=== PATIENT | male | born 1965 | race Caucasian/White ===

== ENCOUNTER 2023-06-16 17:54 | Inpatient (IN) | payer MEDICARE, SELFPAY ==
[2023-06-16 14:14] VITALS: BP 118/85
--- NOTE | 2023-06-16 15:41 | ED.GENMED ---
History of Present Illness
General
Chief Complaint: Musculo-Skeletal Complaint
Source: patient
Time Seen by Provider: 06/16/23 15:05
Travel History
Have you had any contact with someone who has COVID-19?: No
Do you have any symptoms of coronavirus? Fever > 100 degrees, chills, cough, shortness of breath, sore throat, loss of taste or smell, muscle aches, or headache?: No
History of Present Illness
History of Present Illness:
57-year-old male presents to the emergency room complaining of pain and swelling in his right great toe. Patient has been experiencing the pain to at least a mild extent for the past couple weeks. He has noted the toe to be quite sensitive when
his dog bumps into it. He noted the swelling began extending into his ankle and lower extremity prompting him to come to the emergency room today. He denies any fever. Patient is diabetic and takes Glucophage for his diabetes. He does have
decreased sensation in the feet.
Phy Exam
Physical Exam
Physical Exam:
General: Awake, Alert, Oriented X3. No acute distress.
Vitals: unremarkable
Head: Atraumatic
Eyes: Pupils equal, EOMI
Throat: Airway intact, no exudates
Neck: Trachea midline
Lungs: Clear and equal b/l
Heart: Regular rate, no murmurs
Abd: Soft, Nontender, No pulsatile mass
Neuro: Nonfocal
Skin: Warm, dry, no rash
Extremities: pulses equal b/l. Right lower extremity is swollen and there is erythema extending from the great toe up to the lower third of the lower leg. The great toe itself is markedly swollen and erythematous with sloughing of skin and
serosanguineous to purulent discharge. The patient's nail has sloughed. There is no tenderness to palpation.
Course
Orders/Labs/Results
Orders:
Orders
06/16/23 Lunch
2000 calorie (17 carb) Diabetic
06/16/23 14:22
Toes 2 Views, Right [CR Toe(s) Min 2 Vw Right] Urgent
Comment:
Reason For Exam: redness
Indicate Which Toe:: Great
06/16/23 15:30
Piperacillin/Tazo 4.5 Gram [Zosyn] 4.5 gram in 100 ml IV NOW
06/16/23 16:01
Basic Metabolic Panel Urgent
Complete Blood Count/With Diff Urgent
Lactic Acid Q4H
Comment: CANCEL 2nd LACTIC ACID IF 1st LACTIC ACID IS LESS THAN 2
Blood Culture Q30M
GALLITO Source: Blood/Venous
Specimen Description:
Blood Culture Q30M
GALLITO Source: Blood/Venous
Specimen Description:
06/16/23 16:07
Vancomycin [Vancocin] 2,000 mg 0.9% Sodium Chloride 500 ml [Nss] 500 ml IV NOW
06/16/23 17:23
Admit/Transfer Patient As Directed
Co-Sign Provider:
Level of Care: Inpatient admission
Assign to:: Medical/Surgical
Physician / Group: jaquez/hospitalist
Diagnosis: Right great toe cellulitis
Reason for Hospitalization: Right great toe cellulitis, concern for OM
Expected length of stay greater than two midnights?: Yes
ELOS- Estimated Length of Stay in days: 4
I certify the patient meets the requirements for IP care: Yes
06/16/23 17:24
Code Status As Directed
Resuscitation Status: Full Code
06/16/23 19:40
Acetaminophen [Tylenol] 650 mg PO Q4HPRN PRN
06/16/23 20:08
0.9% Sodium Chloride 1000 ml [Nss] 1,000 ml IV 100 mls/hr
Atorvastatin [Lipitor] 10 mg PO QPM
Cyclobenzaprine HCl [Flexeril] 10 mg PO TIDPRN PRN
Dextrose 50%-Water [Dextrose 50% Syringe] 12.5 grams IV [id number] PRN
Enoxaparin Sodium [Lovenox] 40 mg SC QPM
Glucagon [GlucaGen] 1 mg IM PRN PRN
Oxycodone [Roxicodone] 15 mg PO QID
Sennosides [Senokot] 8.6 mg PO BID
VANCOMYCIN Pharmacy to Dose [VANCOCIN Pharmacy to Dose] 1 each Pharmacy To Prepare [Call Pharmacy To Prepare] 0 ml IV PER PROTOCOL
06/16/23 20:08
INFECTIOUS DISEASE CONSULT Routine
Consulting Provider: Yelitza Harrington
Was physician already notified: Yes
Reason for consult: R leg cellulitis/R great toe?om
PODIATRY CONSULT Routine
Consulting Provider: Whitley Smith
Was physician already notified: Yes
Low Ext Joint, Right With MR [MR Right Le Joint With] Routine
Comment:
Reason For Exam: Concern R GREAT toe osteo. abscess.
Recent pill cam endoscopy?: No
Activity As Directed
Activity Level: Out of Bed-Early Mobility
Bedside Glucose Monitoring As Directed
Frequency: AC&HS
Comment: Change to q6h if pt on TPN, tube feeding or not eating
Vital Signs As Directed
Frequency: Per unit guidelines
DX Deep Vein Thrombosis Video Routine
06/17/23 00:00
Piperacillin/Tazo 3.375 Gram [Zosyn] 3.375 gram in 50 ml IV Q6
06/17/23 06:00
Basic Metabolic Panel IN AM
Complete Blood Count/With Diff IN AM
Glycohemoglobin (HgbA1c) IN AM
06/17/23 07:30
Insulin Aspart Corrective Low [Novolog Flexpen-Low Resistance] See Protocol SC AC
06/17/23 08:00
Aspirin Low Dose EC [Aspir Low (Enteric Coated)] 81 mg PO DAILY
vitamin A-vitamin C-vit E-min 1 tablet PO DAILY
06/17/23 12:00
Ascorbic Acid [Vitamin C] 500 mg PO NOON
Cholecalciferol (Vitamin D3) [VITAMIN D3 (cholecalciferol)] 25 mcg PO NOON
Multivitamin [Theragran] 1 tablet PO NOON
Abnormal Lab Results
06/16/23
16:01
RBC 3.70 L 10^6/uL
(4.70-6.10)
Hgb 11.7 L g/dL
(13.0-18.0)
Hct 33.7 L %
(39.0-52.0)
MCH 31.6 H pg
(27.0-31.0)
Sodium 133 L mmol/L
(135-145)
BUN 25 H mg/dl
(9-20)
Creatinine 1.4 H mg/dL
(0.7-1.3)
Glucose 163 H mg/dl
(70-99)
06/16/23 16:01
06/16/23 16:01
Vital Signs
Initial and Last Documented VS:
Initial Vital Signs
Temp Pulse Resp BP Pulse Ox
98.8 F 98 18 118/85 98
06/16/23 14:14 06/16/23 14:14 06/16/23 14:14 06/16/23 14:14 06/16/23 14:14
Last Documented Vital Signs
Temp Pulse Resp BP Pulse Ox
99.5 F 134 18 118/66 97
06/16/23 20:08 06/16/23 20:08 06/16/23 20:08 06/16/23 20:08 06/16/23 20:08
MDM/Problems Addressed
Differential Diagnosis Includes:
Cellulitis, osteomyelitis, abscess
MDM/Problems Addressed:
Patient has significant abnormalities on exam of his great toe and foot. X-rays show changes concerning for osteomyelitis. There is also what appears to be a fracture of the distal phalanx of the great toe. Broad-spectrum antibiotics initiated.
Patient will require hospitalization for IV antibiotics and possible debridement or even amputation.
Chronic conditions affecting care: DM
*Radiology
Radiology exam reviewed: preliminary read by ED provider (Pressure reviewed the patient's foot x-ray and no what appears to be osteomyelitis of the distal phalanx. There are also appears to be a fracture line)
*Pulse Oximetry
Patient hypoxic: no
*Critical Care Note
Total Time (30-74mins, 75-104mins- exclusive of procedures): Not Applicable
ED Attending Note
-
Portions of this chart may have been created with voice recognition software.� Occasional wrong word or��sound alike� substitutions may have occurred due to the inherent limitations of voice recognition software.
Discharge Plan
Departure
Patient Disposition: Admit
Date of Disposition: 06/16/23
Time of Disposition: 16:32
Presentation/result/management discussed w/ accepting MD/DO: Hospitalist
Condition: Serious
Discharge Problem:
Diabetic foot infection
Interventions
Interventions:
*Risk Screen - Suicide Last Done: 06/16/23 15:43
*General Assessment Last Done: 06/16/23 15:43
*Neglect/Abuse Screening Last Done: 06/16/23 15:43
ED- Fall Risk Assessment Last Done: 06/16/23 17:00
*ED COVID-19 Vaccine History Last Done: 06/16/23 15:43
*Nursing Disposition Last Done: 06/16/23 20:23
ED-Musculoskeletal Assessment Last Done: 06/16/23 15:44
Discharge Date and Time
Discharge Date/Time: 06/16/23 20:24
[2023-06-16 15:42] VITALS: BMI 39.0
[2023-06-16] MEDS: ZOSYN 100 IV (15:56)
[2023-06-16 16:14] LABS: % Basophils 0.1 % (0-2); % Eosinophils 0.7 % (0-6); % Immature Granulocytes 0.3 % (0-0.5); % Lymphocytes 23.8 % (20.5-51.1); % Monocytes 9.1 % (1.7-9.3); Absolute Eosinophils 0.1 10^3/uL (0-0.7); Absolute Lymphocytes 1.7 10^3/uL (1.2-3.4); Absolute Monocytes 0.6 10^3/uL (0.1-0.6); Absolute Neutrophils 4.6 10^3/uL (1.4-6.5); Hematocrit 33.7 % (39.0-52.0); Hemoglobin 11.7 g/dL (13.0-18.0); Mean Corp Hgb Conc. 34.7 g/dL (33.0-37.0); Mean Corpuscular Hgb 31.6 pg (27.0-31.0); Mean Corpuscular Volume 91.1 fL (80.0-94.0); Mean Platelet Volume 9.3 fL (7.4-10.4); Nucleated Red Blood Cells % 0 % (-); Platelet Count 207 10^3/uL (130-400); Red Cell Dist. Width 12.8 % (11.5-14.5)
[2023-06-16 16:24] LABS: Blood Urea Nitrogen 25 mg/dl (9-20); Calcium 8.8 mg/dl (8.4-10.2); Carbon Dioxide 27 mmol/L (22-30); Chloride 98 mmol/L (98-107); Estimated Creatinine Clearance 99 ml/min; Glucose 163 mg/dl (70-99); Lactic Acid 1.8 mmol/L (0.7-2.0); Sodium 133 mmol/L (135-145); eGFR 58.26
[2023-06-16 16:30] VITALS: BP 121/75
[2023-06-16] MEDS: VANCOCIN 540 MG IV (16:48)
--- NOTE | 2023-06-16 17:14 | HPS.HSE ---
Family Physician
-
Family Physician: Douglas Peralta
Chief Complaint
-
R TOE SWELLING
History of Present Illness
57-year-old male past medical history as above who is presenting with right great toe swelling and right leg erythema. Patient states he stubbed his right great toe multiple times. There was loosening of right great toe nail. Also states that his
toe was quite sensitive due to pain and his son's dog bumped into it. Woke up this morning with severe right foot swelling and also noted of right leg erythema. Denies any numbing or tingling or pain in right leg and great toe. Denies any fevers
or chills. Denies any nausea vomiting or diarrhea or abdominal pain or chest pain. States he was worried about severe swelling of his right foot and great toe and thus decided come to the ER. Has history of right foot second toe partial
amputation last year.
Medical History
Past Medical History
Past Medical History: Reports HTN, Hypercholesterolemia and NIDDM
Past Surgical History: Reports Orthopedic (R 2nd toe amputation )
Social History
Tobacco: Smoker (cigar occasionally)
Alcohol: None
Drug: None
Family History
Family History: Not pertinent
Allergies / Home Medications
Allergies reflects when Allergies were last updated in [facility].
Home Medications with original date entered in [facility]
Allergy/Medication List:
Allergies
Allergy/AdvReac Type Severity Reaction Status Date / Time
No Known Allergies Allergy Unverified 06/16/23 14:20
Home Medications
ascorbic acid (vitamin C) 500 mg tablet (Vitamin C) 500 mg PO NOON 06/16/23
aspirin 81 mg tablet,delayed release 81 mg PO DAILY 06/16/23
atorvastatin 10 mg tablet (Lipitor) 10 mg PO QPM 06/16/23
cholecalciferol (vitamin D3) 25 mcg (1,000 unit) tablet (Vitamin D3) 25 mcg PO NOON 06/16/23
cyclobenzaprine 10 mg tablet 10 mg PO TID PRN spasms 06/16/23
losartan 100 mg-hydrochlorothiazide 25 mg tablet 1 tab PO DAILY 06/16/23
metformin 1,000 mg tablet 1,000 mg PO BID 06/16/23
oxycodone 15 mg tablet 15 mg PO QID 06/16/23
therapeutic multivitamin 1 tab PO NOON 06/16/23
vitamin A-vitamin C-vit E-min tablet 1 tab PO DAILY 06/16/23
Review of Systems
-
History Source: Patient
A 12 point ROS was completed and negative except as noted: Yes
Physical Exam
Vital Signs
Vital Signs
Temp Pulse Resp BP Pulse Ox
98.8 F 98 18 118/85 98
06/16/23 14:14 06/16/23 14:14 06/16/23 14:14 06/16/23 14:14 06/16/23 14:14
Physical Exam
General: Well Developed, Well Nourished and No Apparent Distress
HEENT: NormoCephalic, Moist mucous membranes and Atraumatic
Respiratory: Clear
Cardiac: S1/S2, Regular Rhythm and Other (+RLE DP pulses); No Murmur or Rub
GI: Soft, Non Tender, Non Distended and Normal Bowel Sounds; No Organomegaly
Rectal: Deferred by Provider
Musculoskeletal: No Clubbing, No Cyanosis and Other (R foot swelling including great toe. R leg erythematous rash )
Skin: No Rash
Neuro: Awake, Alert, Oriented, AO x 3 and Nonfocal/grossly intact
Laboratory Results
-
06/16/23 16:01
06/16/23 16:01
Laboratory Results
Lactic Acid 1.8 mmol/L (0.7-2.0) 06/16/23 16:01
Impression/Plan
-
#Right leg cellulitis
#Right great toe cellulitis with concern for osteomyelitis
X-ray pending
Check MRI of the lower extremity
Continue with broad-spectrum antibiotics of Vanco and Zosyn for now
Infectious disease and further evaluation
Pain control
#Primary hypertension
Hold meds and restart based on Cr in am
# Elevated creatinine likely CKD
Unclear baseline
Outpatient records
Hold HCTZ for now
Gentle IVF
#Hyperlipidemia
continue statin
#Diabetes mellitus
Hold metformin
iss
Accu-Cheks and check A1c
#Chronic opioid dependent daily basis
Continue oxycodone
PDMP checked and verified
Bowel regimen added
DVT ppx-lovenox
I spent a total of 78 minutes with the patient or on the floor. More than 50% of this time involved counseling and coordination of care.
[2023-06-16 19:39] VITALS: BP 125/71
[2023-06-16] MEDS: TYLENOL 650 MG PO (19:45)
[2023-06-16 20:08] VITALS: BP 118/66
--- NOTE | 2023-06-16 20:16 | PHA.VAN.IN ---
Assessment
- Assessment
Renal Function: Unknown baseline
Concomitant Antimicrobials: piperacillin/tazobactam
Plan
- Plan
Initial / Loading Dose: 2000mg - 06/15 16:48
Maintenance Regimen: dosing by level
Monitoring: random 06/16 0600
MRSA Screen: Ordered per protocol
Patient may be slow to accumulate with BMI
CrCl likely overestimated due to height / weight
Pharmacokinetics Vancomycin I
- -
Patient Age: 57
Patient Sex: Male
Vancomycin Day #: 1
Indication: Skin And Soft Tissue
Requesting Provider: Dr. Ayala
Pertinent Antimicrobial Allergies:
NKDA
Height / Weight:
Height 6 ft 8 in
Actual Weight 161.1 kg
Pertinent Past Medical History: BMI ~39, DM
- Vital Signs / Lab Results
Temp Pulse Resp BP Pulse Ox
99.5 F 134 18 118/66 97
06/16/23 20:08 06/16/23 20:08 06/16/23 20:08 06/16/23 20:08 06/16/23 20:08
Lab Results - Hematology
06/16/23
16:01
WBC 7.0
Lab Results - Chemistry
06/16/23
16:01
BUN 25 H
Creatinine 1.4 H
Estimated Creat Clear 99
06/16/23 06/16/23
16:01 19:45
Lactic Acid 1.8 Cancelled
[2023-06-16] MEDS: LOVENOX 40 MG SC (20:24)
[2023-06-16] MEDS: NSS 1000 IV (20:24)
[2023-06-16] MEDS: ROXICODONE 15 MG PO (20:25)
[2023-06-16] MEDS: LIPITOR 10 MG PO (20:25)
[2023-06-16 21:38] LABS: Glucose - Point of Care 186 mg/dl (70-99)
[2023-06-16 23:54] VITALS: BP 106/72
[2023-06-17] MEDS: ROXICODONE 15 MG PO ×5 (00:11→21:28)
[2023-06-17] MEDS: ZOSYN 50 IV ×3 (00:11→11:21)
[2023-06-17 05:49] LABS: % Basophils 0.1 % (0-2); % Eosinophils 1.4 % (0-6); % Immature Granulocytes 0.4 % (0-0.5); % Lymphocytes 22.5 % (20.5-51.1); % Monocytes 9.7 % (1.7-9.3); % Neutrophils 65.9 % (42.2-75.2); Absolute Eosinophils 0.1 10^3/uL (0-0.7); Absolute Lymphocytes 1.6 10^3/uL (1.2-3.4); Absolute Monocytes 0.7 10^3/uL (0.1-0.6); Absolute Neutrophils 4.8 10^3/uL (1.4-6.5); Hematocrit 30.9 % (39.0-52.0); Hemoglobin 10.9 g/dL (13.0-18.0); Mean Corp Hgb Conc. 35.3 g/dL (33.0-37.0); Mean Corpuscular Hgb 32.2 pg (27.0-31.0); Mean Corpuscular Volume 91.4 fL (80.0-94.0); Mean Platelet Volume 9.4 fL (7.4-10.4); Nucleated Red Blood Cells % 0 % (-); Platelet Count 177 10^3/uL (130-400); Red Blood Cell Count 3.38 10^6/uL (4.70-6.10); Red Cell Dist. Width 12.8 % (11.5-14.5); White Blood Cell Count 7.2 10^3/uL (4.8-10.8)
[2023-06-17 06:12] LABS: Blood Urea Nitrogen 21 mg/dl (9-20); Calcium 8.3 mg/dl (8.4-10.2); Carbon Dioxide 29 mmol/L (22-30); Chloride 100 mmol/L (98-107); Estimated Creatinine Clearance 99 ml/min; Glucose 139 mg/dl (70-99); Potassium 3.9 mmol/L (3.5-5.1); Sodium 135 mmol/L (135-145); eGFR 58.26
[2023-06-17 07:00] VITALS: BP 136/72
[2023-06-17] MEDS: ASPIR LOW (ENTERIC COATED) 81 MG PO (07:27)
[2023-06-17 07:42] LABS: Glucose - Point of Care 156 mg/dl (70-99)
[2023-06-17] MEDS: NOVOLOG FLEXPEN-LOW RESISTANCE 1 UNITS SC ×3 (08:36→16:40)
--- NOTE | 2023-06-17 09:31 | W.PN.HOSP.TC ---
Addendum entered and electronically signed by Arden Durham MD 06/17/23 09:39:
Correction will continue to be on vancomycin as MRSA screen still not resulted
Original Note:
Today's Communication/Plan
-
Continue Zosyn
Discontinue vancomycin
Await MRI results
Podiatry input
Has good peripheral vascular pulses and had recent RIMA that was normal
Assessment / Plan
Assessment / Plan
57-year-old male past medical history as above who is presenting with right great toe swelling and right leg erythema.� Patient states he stubbed his right great toe multiple times.� There was loosening of right great toe nail.� Also states that his
toe was quite sensitive due to pain and his son's dog bumped into it.� Woke up this morning with severe right foot swelling and also noted of right leg erythema.� Denies any numbing or tingling or pain in right leg and great toe.� Denies any fevers
or chills.� Denies any nausea vomiting or diarrhea or abdominal pain or chest pain.� States he was worried about severe swelling of his right foot and great toe and thus decided come to the ER.� Has history of right foot second toe partial
amputation last year.
X-ray of the right great toe 3 views:
There is a comminuted fracture involving the distal aspect of the distal phalanx of the right great toe.
There are also is a fracture line extending through the lateral proximal articular margin of the distal phalanx of the right great toe.
Within the fracture fragments of the distal aspect of the distal phalanx, there is suggestion of some bony substance loss, and findings raise concern for osteomyelitis
Continued radiographic follow-up may be helpful to assess for any progression of bony destruction.
There has been interval resection of the right second toe at the level of the mid portion of the middle phalanx.
Mild to moderate degenerative change of the first metatarsophalangeal joint.
Musculoskeletal: No Clubbing, No Cyanosis and Other (R foot swelling including great toe. R leg erythematous rash )
Skin: No Rash
Neuro: Awake, Alert, Oriented, AO x 3 and Nonfocal/grossly intact
#Right leg cellulitis
#Right great toe cellulitis with concern for osteomyelitis
X-ray highly suspicious for osteomyelitis at the tip/with comminuted fracture of distal phalanx right great toe
Check MRI of the lower extremity
-Good peripheral vascular pulses at posterior tibialis and anterior tib/recent RIMA was normal
Continue with broad-spectrum antibiotics of Zosyn for now/discontinue vancomycin with MRSA negative screen
Infectious disease and further evaluation
Pain control
#Primary hypertension
Hold meds and restart based on Cr in am
# Elevated creatinine likely CKD
Unclear baseline
Outpatient records
Hold HCTZ for now
Gentle IVF
#Hyperlipidemia
continue statin
#Diabetes mellitus
Hold metformin
iss
Accu-Cheks and check A1c
#Chronic opioid dependent daily basis
Continue oxycodone
PDMP checked and verified
Bowel regimen added
DVT ppx-lovenox
Anticipated Discharge: 24 - 48 hours
Subjective/Interval History
-
Date of Service: June 17, 2023
Patient in no acute distress
Objective Data
-
Labs:
Laboratory Results
06/17/23
05:03
WBC 7.2
Hgb 10.9 L
Hct 30.9 L
Plt Count 177
Sodium 135
Potassium 3.9
Chloride 100
Carbon Dioxide 29
BUN 21 H
Creatinine 1.4 H
Glucose 139 H
Calcium 8.3 L
Vital Signs:
Vital Signs
Temp Pulse Resp BP Pulse Ox
98.6 F 75 17 136/72 95
06/17/23 07:00 06/17/23 07:00 06/17/23 07:00 06/17/23 07:00 06/17/23 07:00
Review of Systems
-
History Source: Patient
All other systems: Not reviewed unless documented
Skin: Reports Sores (Right great toe with oozing bleeding dressed) and Nail Changes
Physical Exam
-
General: Well Developed
HEENT: Normocephalic
Respiratory: Clear to Auscultation
Cardiac: Regular Rhythm
GI: Soft and Nontender
Musculoskeletal: Edema, Right Lower Extrem (Swollen without breakthrough drainage right great toe dressed/good peripheral pulses at dorsalis pedis and posterior tibialis)
Skin: Warm and Ulcers
Psych: Calm
Data Reviewed
-
Total Time Spent with Patient (in minutes): 56
Labs: Labs Reviewed by me
[2023-06-17 10:32] LABS: Vancomycin Random 7.9 ug/ml
--- NOTE | 2023-06-17 11:15 | PHA.VAN.FU ---
Vancomycin Assessment / Plan
- Assessment
Renal Function: Stable
WBC's are: WNL
In the past 24 hrs, patient has been: Febrile
Concomitant Antimicrobials: Piperacillin/Tazobactam
- Assessment - Therapeutic Drug Monitoring
Random Level: 7.9
- Dosing Plan
Dosing by Level: Re-dose today (1000mg)
- Monitoring Plan
Random Level: 06/17 @0600
- Follow Up
Pharmacy will continue to follow.
Vancomycin Follow UP
- -
Patient Age: 57
Patient Sex: Male
Vancomycin Day #: 2
Indication: Skin And Soft Tissue
Requesting Provider: Dr. Ayala
Pertinent Antimicrobial Allergies:
NKDA
Height / Weight:
Height 6 ft 8 in
Actual Weight 161.1 kg
Pertinent Past Medical History: BMI ~39, DM
- Vital Signs / Lab Results
Temp Pulse Resp BP Pulse Ox
98.6 F 75 17 136/72 95
06/17/23 07:00 06/17/23 07:00 06/17/23 07:00 06/17/23 07:00 06/17/23 07:00
Lab Results - Hematology
06/16/23 06/17/23
16:01 05:03
WBC 7.0 7.2
Lab Results - Chemistry
06/16/23 06/17/23
16:01 05:03
BUN 25 H 21 H
Creatinine 1.4 H 1.4 H
Estimated Creat Clear 99 99
06/16/23 06/16/23
16:01 19:45
Lactic Acid 1.8 Cancelled
Therapeutic Drug Monitoring
Random Vancomycin 7.9 ug/ml 06/17/23 10:05
[2023-06-17] MEDS: THERAGRAN 1 TABLET PO (11:21)
[2023-06-17] MEDS: VITAMIN D3 (cholecalciferol) 25 MCG PO (11:21)
[2023-06-17 11:43] LABS: Glucose - Point of Care 190 mg/dl (70-99)
[2023-06-17] MEDS: VITAMIN C 500 MG PO (12:14)
--- NOTE | 2023-06-17 12:56 | CON.ID ---
Consultation
-
Date/Time Consultation Requested: 06/16/23 20:08
Date/Time Consultation Performed: 06/17/23 12:56
Requesting Provider: Dr Ayala
Performing Provider: Dr Carlson
Reason for Consultation: R leg cellulitis/R great toe?om
Chief Complaint / Past History
Chief Complaint
right toe swelling
History of Present Illness
Mr Zan Prasad is a 57 year old male with history of DM2, R 2nd toe amputation, class II obesity who presented here last night for right great toe swelling and right leg erythema. Reports stubbing the toe multiple times recently - toe nail was loose,
then woke up with severe ight foot swelling and right leg erythema. No numbness or tingling. No fevers, chills, nausea, vomiting, diarrhea, abdominal pain or chest pain.
Since arrival here Tmax 100.9, BP stable, wbc 7.2, hgb 10.9, plt 177, a left shift is noted, cr 1.4, a1c 8.0, lactic acid 1.8, lfts were not assessed, 06/15 toe xray: fracture, bony loss concerning for possible osteomyelitis, blood cultures x2 are in
progress and a mrsa screen is in progress. Podiatry is consulted. Patient is currently on vancomycin and zosyn. ID is consulted for assistance with management.
Past History
Additional Past Medical History:
HTN, Hypercholesterolemia and NIDDM
Additional Past Surgical History:
R 2nd toe amputation
Allergy History:
No Known Allergies Allergy (Unverified 06/16/23 14:20)
Medications Reviewed: Yes
Social History
Tobacco: Smoker
Alcohol: None
Drug: None
Family History
Family History: Not Pertinent
Review of Systems
Review of Systems
General: Negative Fever or Chills
All systems: All other systems were reviewed and were negative
Vital Signs
Temp Pulse Resp BP Pulse Ox
98.6 F 75 17 136/72 95
06/17/23 07:00 06/17/23 07:00 06/17/23 07:00 06/17/23 07:00 06/17/23 07:00
Physical Exam
Physical Exam
Constitutional: No Acute Distress
Cardiovascular: Regular Rate and S1/S2; Negative Murmur or Rub
Pulmonary: Clear and Symmetric; Negative Wheezes, Rales or Rhonchi
Gastrointestinal: Soft, Non Tender, Non Distended and Normal Bowel Sounds
Extremities: Other (right great toe probes to bone - marekdly swollen, no feeling in the great toe; 2nd digit note partial amputation - fully healed)
Skin: Warm and Dry; Negative Rash or Jaundice
Lab / Diagnostic Study Results
06/17/23 05:03
06/17/23 05:03
Abs Immat Gran (auto) 0.0 10^3/uL (0-0.05) 06/17/23 05:03
Absolute Neuts (auto) 4.8 10^3/uL (1.4-6.5) 06/17/23 05:03
Absolute Lymphs (auto) 1.6 10^3/uL (1.2-3.4) 06/17/23 05:03
Absolute Monos (auto) 0.7 10^3/uL (0.1-0.6) H 06/17/23 05:03
Absolute Basos (auto) 0.0 10^3/uL (0-0.2) 06/17/23 05:03
Immature Gran % 0.4 % (0-0.5) 06/17/23 05:03
Neutrophils % 65.9 % (42.2-75.2) 06/17/23 05:03
Lymphocytes % 22.5 % (20.5-51.1) 06/17/23 05:03
Monocytes % 9.7 % (1.7-9.3) H 06/17/23 05:03
Eosinophils % 1.4 % (0-6) 03/04/24 05:03
Basophils % 0.1 % (0-2) 06/17/23 05:03
Lactic Acid Cancelled 06/16/23 19:45
Microbiology Results
Micro:
06/16/23 22:31 MRSA Screen - Pending
Nose
06/16/23 16:01 Blood Culture - Pending
Blood/Venous
06/16/23 16:01 Blood Culture - Pending
Blood/Venous
Assessment / Plan
Diabetic Foot Infection
Probable Osteomyelitis of the Right Great Toe
H/o partial amputation of the R second toe
DM2 uncontrolled
Class II obesity
- blood cultures x2 in progress
- mrsa screen in progress
- compression/elevation of the foot/leg as tolerated
- continue vancomycin pending mrsa screen
- start unasyn stop zosyn
- penitentiary control of DM2 recommended to decrease risk of relapse, reinfection, progression etc - reviewed with patient
- recommend abstinence from tobacco - reviewed with patient
- podiatry is consulted
- follow clinically
[2023-06-17] MEDS: VANCOCIN 200 IV (13:03)
[2023-06-17 15:00] VITALS: BP 132/66
[2023-06-17 16:39] LABS: Glucose - Point of Care 153 mg/dl (70-99)
--- NOTE | 2023-06-17 17:19 | CM ---
Alert awake oriented patient who lives with his son Rik who lives in a 2 story home with 10 step to enter and 12 steps to bed and bathroom. He is independent in driving and in all activities of daily living.He was offered VN he requested [facility]
VN. Saida notified .
No VN hx / No SNF history
Pharmacy [address]
PCP DR Peralta
PLAN Home [facility] VN if accepted
--- NOTE | 2023-06-17 17:28 | CON.MD ---
Consultation - Medical
-
CONSULTATION :Dr Sofia Durham received 06/17/2023 at 945
Cons[address] provided by Dr Veronica Cote 06/17/2023 @ 1700
Medical History
Chief Complaint
Right great toe swelling
History of Present Illness
This is a 57 year old male with history of DM2, R 2nd toe amputation, obesity who presented here last night for right great toe and right leg swelling and erythema.� Reports stubbing the toe multiple times recently - toe nail was loose, then woke up
with severe right foot swelling and right leg erythema.� No numbness or tingling.� No fevers, chills, nausea, vomiting, diarrhea, abdominal pain or chest pain.�
�
06/15 toe xray: Fracture, bony loss concerning for possible osteomyelitis, blood cultures x2 are in progress and a mrsa screen is in progress.� Patient is currently on vancomycin and zosyn per ID
Review of Systems
Review of Systems
General: Negative Fever or Chills
All systems: All other systems were reviewed and were negative
Vital Signs
Physical Exam
Physical Exam
Constitutional: No Acute Distress
Cardiovascular: Regular Rate and S1/S2; Negative Murmur or Rub
Pulmonary: Clear and Symmetric; Negative Wheezes, Rales or Rhonchi
Gastrointestinal: Soft, Non Tender, Non Distended and Normal Bowel Sounds
Extremities: Other (right great toe probes to bone - marekdly swollen, no feeling in the great toe; 2nd digit note partial amputation - fully healed)
Skin: Warm and Dry; Negative Rash or Jaundice
Lab / Diagnostic Study Results
Past Medical / Surgical History
HTN, Hypercholesterolemia and NIDDM
Additional Past Surgical History:
PSH: S/P Partial R 2nd toe amputation
Medications
Medications Reviewed on chart
Allergies
NKDA
Social / Family History
Social History
Tobacco: Smoker
Alcohol: denies
Drug: denies
Family History
Family History: Not Pertinent
Vital Signs / Labs
-
Vital Signs and Labs:
Temp Pulse Resp BP Pulse Ox
98.6 F 80 18 132/66 96
06/17/23 15:00 06/17/23 15:00 06/17/23 15:00 06/17/23 15:00 06/17/23 15:00
06/17/23 05:03
06/17/23 05:03
06/16/23 06/17/23 06/17/23
21:36 05:03 07:40
RBC 3.38 L
Hgb 10.9 L
Hct 30.9 L
MCH 32.2 H
Absolute Monos (auto) 0.7 H
Monocytes % 9.7 H
BUN 21 H
Creatinine 1.4 H
Glucose 139 H
Hemoglobin A1c 8.0 H
Calcium 8.3 L
POC Glucose 186 H 156 H
06/17/23 06/17/23
11:41 16:35
RBC
Hgb
Hct
MCH
Absolute Monos (auto)
Monocytes %
BUN
Creatinine
Glucose
Hemoglobin A1c
Calcium
POC Glucose 190 H 153 H
Physical Exam
Vital Signs
Vital Signs
Temp Pulse Resp BP Pulse Ox
98.6 F 80 18 132/66 96
06/17/23 15:00 06/17/23 15:00 06/17/23 15:00 06/17/23 15:00 06/17/23 15:00
Physical Exam
General: pleasant AAOx3 in NAD
LE focused exam:
Vascular:+2/4 DPA and PLUGGER B/L, good cft to toes. ++LE edema
Derm: ++Cellulitis Right foot and leg.wound to the distal great toe probes to bone, unable to express purulent drainage tonight, feet are dry. LEft foot scaly with thick keratosis, +heel fissures B/L heels
Ortho: Drop foot/Peroneal weakness LLE
Neuro: Diminished protetive sensation
Assessemnt/Plan
-
DM2 with DPN/LOPS
LLE foot drop/gait dysfunction
Xerosis and chronic tinea pedis LLE>Rt
Osteomyelitis Right great toe w/pathologic fracture--MRI pending, xray included entire distal phalynx, however clinically may have abscess and poss early osteo of the prox phalynx
Cellulitis RLE-iv abt per ID
-->Patient will require amp of the great toe -pending MRI will determine if total amp Vs Partial. May need open amp followed by delayed closure. Will make NPO, however, the liklihood of getting in the OR early is unlikely and may need to add to Wed
schedule. Will make NPO and hold sq hep
[2023-06-17] MEDS: LIPITOR 10 MG PO (18:19)
[2023-06-17] MEDS: LOVENOX 40 MG SC (18:20)
[2023-06-17] MEDS: UNASYN IV (18:21)
[2023-06-17 20:21] LABS: Hepatitis C Antibody Negative (Negative)
[2023-06-17 21:34] LABS: Glucose - Point of Care 205 mg/dl (70-99)
[2023-06-17 23:39] VITALS: BP 124/70
[2023-06-18] MEDS: UNASYN IV ×5 (00:52→23:58)
[2023-06-18 06:02] LABS: Blood Urea Nitrogen 21 mg/dl (9-20); Calcium 8.8 mg/dl (8.4-10.2); Carbon Dioxide 32 mmol/L (22-30); Chloride 98 mmol/L (98-107); Estimated Creatinine Clearance 107 ml/min; Glucose 179 mg/dl (70-99); Potassium 3.9 mmol/L (3.5-5.1); Sodium 137 mmol/L (135-145); eGFR > 60.00
[2023-06-18 06:08] LABS: Vancomycin Random 8.1 ug/ml
[2023-06-18 06:12] LABS: Glucose - Point of Care 182 mg/dl (70-99)
--- NOTE | 2023-06-18 06:35 | PTCARENOTE ---
Patient's preliminary blood cultures came back positive for gram positive cocci. MARINA Yañez made aware of result. No new orders received.
[2023-06-18 07:45] VITALS: BP 133/76
[2023-06-18 07:56] LABS: Glucose - Point of Care 161 mg/dl (70-99)
--- NOTE | 2023-06-18 08:08 | PHA.VAN.FU ---
Vancomycin Assessment / Plan
- Assessment
Renal Function: Stable
WBC's are: WNL
In the past 24 hrs, patient has been: Afebrile
Concomitant Antimicrobials: ampicillin/sulbactam
- Assessment - Therapeutic Drug Monitoring
Random Level: 8.1 - drawn ~16H after previous dose of 1000mg
- Dosing Plan
Dosing by Level: Re-dose today (Vanc 1500mg x1)
Dosing Comments: level stable with 1000mg - increase dose today
- Monitoring Plan
Random Level: 06/18 0600
- Follow Up
Pharmacy will continue to follow.
Vancomycin Follow UP
- -
Patient Age: 57
Patient Sex: Male
Vancomycin Day #: 3
Indication: Skin And Soft Tissue
Requesting Provider: Dr. Ayala / Robyn
Pertinent Antimicrobial Allergies:
NKDA
Height / Weight:
Height 6 ft 8 in
Actual Weight 161.1 kg
Pertinent Past Medical History: BMI ~39, DM
- Vital Signs / Lab Results
Temp Pulse Resp BP Pulse Ox
97.5 F 65 14 133/76 96
06/18/23 07:45 06/18/23 07:45 06/18/23 07:45 06/18/23 07:45 06/18/23 07:45
Lab Results - Hematology
06/16/23 06/17/23
16:01 05:03
WBC 7.0 7.2
Lab Results - Chemistry
06/16/23 06/17/23 06/18/23
16:01 05:03 05:06
BUN 25 H 21 H 21 H
Creatinine 1.4 H 1.4 H 1.3
Estimated Creat Clear 99 99 107
06/16/23 06/16/23
16:01 19:45
Lactic Acid 1.8 Cancelled
Microbiology Results
06/16/23 16:01 Blood Culture - Preliminary
Blood/Venous Positive culture in progress
Gram Stain - Preliminary
06/17/23 13:42 Gram Stain - Preliminary
Foot - Right
06/16/23 16:01 Blood Culture - Preliminary
Blood/Venous No Growth in 24 hours- Final report to follow
Therapeutic Drug Monitoring
Random Vancomycin 8.1 ug/ml 06/18/23 05:06
--- NOTE | 2023-06-18 08:48 | W.PN.HOSP.TC ---
Today's Communication/Plan
-
For proposed I&D in a.m. of the tip of right great toe with incision and drainage of abscess
Continue Unasyn
Presumed can stop vancomycin with negative screen for MRSA
Blood cultures positive pending results
Assessment / Plan
Assessment / Plan
57-year-old male past medical history as above who is presenting with right great toe swelling and right leg erythema.� Patient states he stubbed his right great toe multiple times.� There was loosening of right great toe nail.� Also states that his
toe was quite sensitive due to pain and his son's dog bumped into it.� Woke up this morning with severe right foot swelling and also noted of right leg erythema.� Denies any numbing or tingling or pain in right leg and great toe.� Denies any fevers
or chills.� Denies any nausea vomiting or diarrhea or abdominal pain or chest pain.� States he was worried about severe swelling of his right foot and great toe and thus decided come to the ER.� Has history of right foot second toe partial
amputation last year.
X-ray of the right great toe 3 views:
There is a comminuted fracture involving the distal aspect of the distal phalanx of the right great toe.
There are also is a fracture line extending through the lateral proximal articular margin of the distal phalanx of the right great toe.
Within the fracture fragments of the distal aspect of the distal phalanx, there is suggestion of some bony substance loss, and findings raise concern for osteomyelitis
Continued radiographic follow-up may be helpful to assess for any progression of bony destruction.
There has been interval resection of the right second toe at the level of the mid portion of the middle phalanx.
Mild to moderate degenerative change of the first metatarsophalangeal joint.
MRI noted evidence of osteomyelitis of the distal phalanx of the right great toe along with some plantar abscess fluid /no involvement with osteo of the proximal phalanx
Musculoskeletal: No Clubbing, No Cyanosis and Other (R foot swelling including great toe. R leg erythematous rash )
Skin: No Rash
Neuro: Awake, Alert, Oriented, AO x 3 and Nonfocal/grossly intact
#Right leg cellulitis/osteomyelitis of the distal right great toe
-Positive blood cultures x 2
X-ray highly suspicious for osteomyelitis at the tip/with comminuted fracture of distal phalanx right great toe
-Good peripheral vascular pulses at posterior tibialis and anterior tib/recent RIMA was normal
Continue with broad-spectrum antibiotics Unasyn for now/discontinue vancomycin with MRSA negative screen
Infectious disease following
For I&D by podiatry June 18
Pain control
#Primary hypertension
Hold meds and restart based on Cr in am
# Elevated creatinine likely CKD
Unclear baseline
Outpatient records
Hold HCTZ for now
Gentle IVF
#Hyperlipidemia
continue statin
#Diabetes mellitus
Hold metformin
iss
Accu-Cheks and check A1c
#Chronic opioid dependent daily basis
Continue oxycodone
PDMP checked and verified
Bowel regimen added
DVT ppx-lovenox
Anticipated Discharge: Within 24 hours
Subjective/Interval History
-
Date of Service: June 18, 2023
No distress made aware of MRI results and also blood culture results.
Objective Data
-
Labs:
Laboratory Results
06/18/23
05:06
Sodium 137
Potassium 3.9
Chloride 98
Carbon Dioxide 32 H
BUN 21 H
Creatinine 1.3
Glucose 179 H
Calcium 8.8
Vital Signs:
Vital Signs
Temp Pulse Resp BP Pulse Ox
97.5 F 65 14 133/76 96
06/18/23 07:45 06/18/23 07:45 06/18/23 07:45 06/18/23 07:45 06/18/23 07:45
I&O
06/17/23 06/18/23 06/19/23
06:59 06:59 06:59
Intake Total 720 / 720 480 / 480
Output Total 500 / 500
Balance 220 / 220 480 / 480
Review of Systems
-
History Source: Patient
Constitutional: Reports No Symptoms
EENT: Reports No Symptoms Reported
Respiratory: Reports No Symptoms
Cardiac: Reports No Symptoms
Abdomen/GI: Reports No Symptoms
Genitourinary: Reports No Symptoms
Skin: Reports Sores
Physical Exam
-
General: Well Developed
HEENT: Normocephalic
Respiratory: Clear to Auscultation
Cardiac: Regular Rhythm
GI: Soft and Nontender
Skin: Ulcers and IV Access / Catheter Site
Neuro: Awake, Alert and Oriented
Psych: Calm
Data Reviewed
-
Total Time Spent with Patient (in minutes): 45
MRI: Report Reviewed by me (Evidence of osteomyelitis of the distal phalanx of the right foot great toe with also underlying plantar abscess proximal phalanx not involved)
Medical Tests (Nuc Med, Echo etc): Image personally visualized and interpreted and Report Reviewed by me
Labs: Labs Reviewed by me
[2023-06-18] MEDS: ROXICODONE 15 MG PO ×4 (09:00→21:13)
[2023-06-18] MEDS: NOVOLOG FLEXPEN-LOW RESISTANCE 1 UNITS SC ×2 (09:01→16:56)
[2023-06-18] MEDS: VANCOCIN 300 MG IV (09:05)
[2023-06-18] MEDS: VANCOCIN 300 ML IV (09:05)
--- NOTE | 2023-06-18 09:32 | W.PN.UPDATE ---
Update Note
Progress Note Update
Patient is stable/non-toxic.
Due to OR scheduling conflict will be unable to add to OR sched for today.
MRI: evidence of osteomyelitis of the distal phalanx of the right great toe along with some plantar abscess fluid /no involvement with osteo of the proximal phalanx
A/P
1) OM right Hallux distal phal- will require partial toe amp and I&D of plantar abscess.
2) Patient added to OR sched for 06/19/23. Release from NPO status for today, NPO after MN tonight. Hold Lovenox tonight
3) Blood cx +- final pending, ID following
--- NOTE | 2023-06-18 11:19 | W.PN.ID1 ---
Date of Service
Date of Service: June 18, 2023
Today's Communication
continue vanc/unasyn
Assessment / Plan
Diabetic Foot Infection
Probable Osteomyelitis of the Right Great Toe
H/o partial amputation of the R second toe
DM2 uncontrolled
Class II obesity
- blood cultures x2 positive one set GPB (likely contaminant) GPCS in clusters - possibly a true pathogen
- repeat blood cultures x2 '
- wound cx: few GPCs, few GNR - in progress
- MRI osteo/abscess of the great toe
- compression/elevation of the foot/leg as tolerated
- for partial toe amp and I&D of plantar abscess 06/18
- continue vancomycin - mrsa screen negative, continue vanc pending ID of the GPCs
- continue unasyn
- intermodal customer service control of DM2 recommended to decrease risk of relapse, reinfection, progression etc - reviewed with patient
- recommend abstinence from tobacco - reviewed with patient
- podiatry is consulted
- follow clinically
Chief Complaint
-: Other (osteomyelitis, cellulitis )
Subjective / Review of Systems
no further fevers
bp stable
cr stable
blood cultures x2 positive one set GPB (likely contaminant) GPCS in clusters - possibly a true pathogen
Vital Signs / Physical Exam
Vital Signs
Vital Signs
Temp Pulse Resp BP Pulse Ox
97.5 F 65 14 133/76 96
06/18/23 07:45 06/18/23 07:45 06/18/23 07:45 06/18/23 07:45 06/18/23 07:45
Physical Exam
Constitutional: No Acute Distress
Cardiovascular: Regular Rate and S1/S2; Negative Murmur or Rub
Pulmonary: Clear and Symmetric; Negative Wheezes or Rales
Gastrointestinal: Soft, Non Tender, Non Distended and Normal Bowel Sounds
Skin: Warm and Dry; Negative Rash or Jaundice
Wound: Other
Lines: PIV
Objective Data
Lab Data
Lab Results
06/17/23 05:03
06/18/23 05:06
Estimated Creat Clear 107 ml/min 06/18/23 05:06
Lactic Acid Cancelled 06/16/23 19:45
Most recent labs reviewed.
Micro Results:
06/16/23 22:31 MRSA Screen - Final
Nose No Methicillin Resistant Staphylococcus aureus isolated.
06/16/23 16:01 Blood Culture - Preliminary
Blood/Venous Positive culture in progress
Gram Stain - Preliminary
06/16/23 16:01 Blood Culture - Preliminary
Blood/Venous Positive culture in progress
Gram Stain - Preliminary
06/17/23 13:42 Wound Culture - Pending
Foot - Right Gram Stain - Preliminary
[2023-06-18] MEDS: VITAMIN D3 (cholecalciferol) 25 MCG PO (12:41)
[2023-06-18] MEDS: THERAGRAN 1 TABLET PO (12:41)
[2023-06-18] MEDS: VITAMIN C 500 MG PO (12:41)
[2023-06-18] MEDS: NOVOLOG FLEXPEN-LOW RESISTANCE 2 UNITS SC (12:49)
[2023-06-18 12:50] LABS: Glucose - Point of Care 241 mg/dl (70-99)
[2023-06-18 15:00] VITALS: BP 132/73
[2023-06-18 16:35] LABS: Glucose - Point of Care 158 mg/dl (70-99)
[2023-06-18] MEDS: LOVENOX 40 MG SC (16:59)
[2023-06-18] MEDS: LIPITOR 10 MG PO (16:59)
[2023-06-18 21:31] LABS: Glucose - Point of Care 141 mg/dl (70-99)
[2023-06-18 23:55] VITALS: BP 131/71
[2023-06-19 06:04] LABS: Glucose - Point of Care 156 mg/dl (70-99)
[2023-06-19] MEDS: UNASYN IV ×3 (06:05→18:13)
[2023-06-19] MEDS: NOVOLOG FLEXPEN-LOW RESISTANCE 1 UNITS SC ×2 (06:06→13:00)
[2023-06-19 07:00] VITALS: BP 137/75
[2023-06-19] MEDS: ROXICODONE 15 MG PO ×4 (08:16→21:36)
--- NOTE | 2023-06-19 08:58 | W.PN.HOSP.TC ---
Addendum entered and electronically signed by Arden Durham MD 06/19/23 13:35:
Patient did not meet criteria for SIRS or sepsis on presentation just consistent with abscess and cellulitis of the right foot wound of great toe
Original Note:
Today's Communication/Plan
-
For partial toe amputation and I&D of plantar abscess today
Lovenox was held
Still pending blood culture results
Continue Unasyn and vancomycin for now
Assessment / Plan
Assessment / Plan
57-year-old male past medical history as above who is presenting with right great toe swelling and right leg erythema.� Patient states he stubbed his right great toe multiple times.� There was loosening of right great toe nail.� Also states that his
toe was quite sensitive due to pain and his son's dog bumped into it.� Woke up this morning with severe right foot swelling and also noted of right leg erythema.� Denies any numbing or tingling or pain in right leg and great toe.� Denies any fevers
or chills.� Denies any nausea vomiting or diarrhea or abdominal pain or chest pain.� States he was worried about severe swelling of his right foot and great toe and thus decided come to the ER.� Has history of right foot second toe partial
amputation last year.
X-ray of the right great toe 3 views:
There is a comminuted fracture involving the distal aspect of the distal phalanx of the right great toe.
There are also is a fracture line extending through the lateral proximal articular margin of the distal phalanx of the right great toe.
Within the fracture fragments of the distal aspect of the distal phalanx, there is suggestion of some bony substance loss, and findings raise concern for osteomyelitis
Continued radiographic follow-up may be helpful to assess for any progression of bony destruction.
There has been interval resection of the right second toe at the level of the mid portion of the middle phalanx.
Mild to moderate degenerative change of the first metatarsophalangeal joint.
MRI noted evidence of osteomyelitis of the distal phalanx of the right great toe along with some plantar abscess fluid /no involvement with osteo of the proximal phalanx
Musculoskeletal: No Clubbing, No Cyanosis and Other (R foot swelling including great toe. R leg erythematous rash )
Skin: No Rash
Neuro: Awake, Alert, Oriented, AO x 3 and Nonfocal/grossly intact
#Right leg cellulitis/osteomyelitis of the distal right great toe/surrounding abscess
-Positive blood cultures x 2
X-ray highly suspicious for osteomyelitis at the tip/with comminuted fracture of distal phalanx right great toe
-Good peripheral vascular pulses at posterior tibialis and anterior tib/recent RIMA was normal
Continue with broad-spectrum antibiotics Unasyn for now/MRSA screen was negative but will continue vancomycin till blood culture resulted
Infectious disease following
For I&D by podiatry June 18
Pain control
#Primary hypertension
Hold meds and restart based on Cr in am
# Elevated creatinine likely CKD
Unclear baseline
Outpatient records
Hold HCTZ for now
Gentle IVF
#Hyperlipidemia
continue statin
#Diabetes mellitus
Hold metformin
iss
Accu-Cheks and check A1c equals 8.0
-Stressed importance of improved glycemic management once outpatient for proper healing and avoidance of recurrent
#Chronic opioid dependent daily basis
Continue oxycodone
PDMP checked and verified
Bowel regimen added
DVT ppx-lovenox
Anticipated Discharge: 24 - 48 hours
Subjective/Interval History
-
Date of Service: June 19, 2023
Awaiting podiatry surgical intervention later today has been n.p.o.
Objective Data
-
Vital Signs:
Vital Signs
Temp Pulse Resp BP Pulse Ox
98.0 F 63 18 137/75 95
06/19/23 07:00 06/19/23 07:00 06/19/23 07:00 06/19/23 07:00 06/19/23 07:00
I&O
06/18/23 06/19/23 06/20/23
06:59 06:59 06:59
Intake Total 720 / 720 480 / 960 480 / 480
Output Total 500 / 500
Balance 220 / 220 480 / 960 480 / 480
Review of Systems
-
All other systems: Not reviewed unless documented
Physical Exam
-
General: Well Developed
HEENT: Normocephalic
Respiratory: Clear to Auscultation
Cardiac: Regular Rhythm
GI: Soft, Nontender and Nondistended
Skin: Ulcers (Right great toe with surrounding erythema/discharge and dressed)
Neuro: Awake and Alert
Psych: Calm
Data Reviewed
-
Total Time Spent with Patient (in minutes): 56
Labs: Labs Reviewed by me (Blood sugar 156 this morning/blood cultures still pending result from admission)
[2023-06-19 09:52] LABS: Vancomycin Random 7.5 ug/ml
--- NOTE | 2023-06-19 10:33 | PHA.VAN.FU ---
Addendum entered and electronically signed by Thelma Bhat [facility] 06/19/23 15:21:
BUN & SCR ordered per protocol
Original Note:
Vancomycin Assessment / Plan
- Assessment
Renal Function: No New Labs Today
WBC's are: WNL
In the past 24 hrs, patient has been: Afebrile
Concomitant Antimicrobials: ampicillin/sulbactam
- Assessment - Therapeutic Drug Monitoring
Random Level: 7.5 - 22H after previous dose of 1500mg
- Dosing Plan
Dosing by Level: Re-dose today (Vanc 1000mg x1 now and 1000mg x1 at 1999)
- Monitoring Plan
Random Level: 06/19 599
- Follow Up
Pharmacy will continue to follow.
Vancomycin Follow UP
- -
Patient Age: 57
Patient Sex: Male
Vancomycin Day #: 4
Indication: Skin And Soft Tissue
Requesting Provider: Dr. Ayala / Robyn
Pertinent Antimicrobial Allergies:
NKDA
Height / Weight:
Height 6 ft 8 in
Actual Weight 161.1 kg
Pertinent Past Medical History: BMI ~39, DM
- Vital Signs / Lab Results
Temp Pulse Resp BP Pulse Ox
98.0 F 63 18 137/75 95
06/19/23 07:00 06/19/23 07:00 06/19/23 07:00 06/19/23 07:00 06/19/23 07:00
Lab Results - Hematology
06/16/23 06/17/23
16:01 05:03
WBC 7.0 7.2
Lab Results - Chemistry
06/16/23 06/17/23 06/18/23
16:01 05:03 05:06
BUN 25 H 21 H 21 H
Creatinine 1.4 H 1.4 H 1.3
Estimated Creat Clear 99 99 107
06/16/23 06/16/23
16:01 19:45
Lactic Acid 1.8 Cancelled
Microbiology Results
06/16/23 16:01 Blood Culture - Preliminary
Blood/Venous Positive culture in progress
Gram Stain - Preliminary
06/16/23 16:01 Blood Culture - Preliminary
Blood/Venous Positive culture in progress
Gram Stain - Preliminary
06/17/23 13:42 Wound Culture - Preliminary
Foot - Right Gram Stain - Preliminary
06/16/23 22:31 MRSA Screen - Final
Nose No Methicillin Resistant Staphylococcus aureus isolated.
Therapeutic Drug Monitoring
Random Vancomycin 7.5 ug/ml 06/19/23 07:02
--- NOTE | 2023-06-19 10:39 | PN.CDI ---
CDI
- -
CDI:
Physician Documentation Request
Admit Date: 06/16/23 17:54
Dear Doctor Marva,
Please review the following and provide your response in the progress notes.
Clinical Indicators:
Pt admitted with Right leg cellulitis/osteomyelitis of the distal right great toe/surrounding abscess Positive blood cultures x 2/Pt on Unasyn/Vancomycin
On admission Tmax 100.9, HR 134
Please clarify which of the following most accurately describes the status of the patient's infection:
Sepsis-POA
- Systemic manifestations of infection, with 2 or more SIRS criteria which include:
- Fever >100.4 degrees F or hypothermia < 96.8 degrees F
- Leukocytosis - WBC > 12,000 or leukopenia - WBC < 4,000 or > 10% bands
- Tachycardia > 90 beats per minute
- Tachypnea - RR > 20 breaths per minute or PaCO2 , 32mmHg
Source: Merck Manual 2013
RLE Cellulitis/Osteomyelitis/Abscess only , Without Systemic Illness
Other
Use of terms such as suspected, likely, concern for, or probable (associated with a specific diagnosis that is being evaluated, monitored, or treated as if it exists) are acceptable and can be coded in the inpatient setting, when documented at the
time of discharge.
Thank you,
Charis Knowles RN
CDI Specialist
[place] [facility]
Please use your independent medical judgment in providing your response.
--- NOTE | 2023-06-19 11:33 | CM ---
Pt for amputation right toe and I and D today.
As per care port pt accepted by Shaun BUCKLEY at id.
IV antibiotics.
PLAN Home with Shaun BUCKLEY
[2023-06-19] MEDS: VANCOCIN 200 IV ×2 (12:07→21:35)
[2023-06-19 12:09] LABS: Glucose - Point of Care 176 mg/dl (70-99)
--- NOTE | 2023-06-19 12:31 | W.PN.ID1 ---
Date of Service
Date of Service: June 19, 2023
Today's Communication
- continue vancomycin - continue vanc pending ID of the GPCs in the blood culture
- continue unasyn
Assessment / Plan
Diabetic Foot Infection
Probable Osteomyelitis of the Right Great Toe
H/o partial amputation of the R second toe
DM2 uncontrolled
Class II obesity
- blood cultures x2, 1 set with GPCS in clusters - awaiting ID, positive one set GPB (likely contaminant)
- repeat blood cultures x2 '
- MRI osteo/abscess of the great toe
- compression/elevation of the foot/leg as tolerated
- for partial toe amp and I&D of plantar abscess 06/18
- continue vancomycin - continue vanc pending ID of the GPCs in the blood culture
- continue unasyn
- mcfp control of DM2 recommended to decrease risk of relapse, reinfection, progression etc - reviewed with patient
- recommend abstinence from tobacco - reviewed with patient
- podiatry is consulted
- follow clinically
Chief Complaint
-: Other (osteomyelitis, cellulitis )
Subjective / Review of Systems
afebrile
bp stable
without leukocytosis
cr stable
a1c 8
wound culture CONS, also with a diptheroid
Vital Signs / Physical Exam
Vital Signs
Vital Signs
Temp Pulse Resp BP Pulse Ox
98.0 F 63 18 137/75 96
06/19/23 07:00 06/19/23 07:00 06/19/23 07:00 06/19/23 07:00 06/19/23 08:52
Physical Exam
Constitutional: No Acute Distress and Obese
Cardiovascular: Regular Rate
Pulmonary: Symmetric and Non Labored
Gastrointestinal: Non Distended
Skin: Dry; Negative Rash or Jaundice
Wound: Other (dressing clean, dry, intact)
Neurological: Negative Awake
Objective Data
Lab Data
Lab Results
06/17/23 05:03
06/18/23 05:06
Estimated Creat Clear 107 ml/min 06/18/23 05:06
Lactic Acid Cancelled 06/16/23 19:45
Most recent labs reviewed.
Micro Results:
06/17/23 13:42 Wound Culture - Preliminary
Foot - Right Coagulase neg. staphylococcus
Diptheroids
Gram negative bacilli
Gram Stain - Preliminary
06/18/23 11:42 Blood Culture - Preliminary
Blood/Venous No Growth in 24 hours- Final report to follow
06/16/23 16:01 Blood Culture - Preliminary
Blood/Venous Positive culture in progress
Gram Stain - Preliminary
06/16/23 16:01 Blood Culture - Preliminary
Blood/Venous Positive culture in progress
Gram Stain - Preliminary
06/18/23 12:37 Blood Culture - Pending
Blood/Venous
06/16/23 22:31 MRSA Screen - Final
Nose No Methicillin Resistant Staphylococcus aureus isolated.
[2023-06-19] MEDS: VITAMIN D3 (cholecalciferol) 25 MCG PO (12:59)
[2023-06-19] MEDS: THERAGRAN 1 TABLET PO (12:59)
[2023-06-19] MEDS: VITAMIN C 500 MG PO (12:59)
--- NOTE | 2023-06-19 17:20 | W.SUR.POST ---
Surgical Immediate Post Op
Note
Pre Op Diagnosis: abscess and OM right great toe distal phalynx
Post Op Diagnosis: OM with bone abscess right grt toe distal phalynx
Procedure Performed: Partial rt hallux amp
Primary Surgeon: Edmundo Cote
Secondary Surgeons: n/a
Anesthesia: IV sed with 5cc 1% Lido pl and 5cc 0.5%amelia pl
Estimated Blood Loss: 30ml
Fluids: n/a
Drains/Shunts: n/a
Specimens/Cultures: bone prox margin-prox phalynx head
Doppler/Duplex/Angio (Y/N): N
Complications: N
Operative Findings:
No soft tissue abscess noted-head pp is hard and appears healthy, abscess and purulence to distal phalynx
[2023-06-19 17:22] VITALS: BP 121/74
[2023-06-19 17:23] VITALS: BP 137/75
[2023-06-19 17:30] VITALS: BP 126/74
[2023-06-19 17:31] LABS: Glucose - Point of Care 124 mg/dl (70-99)
[2023-06-19] MEDS: LIPITOR 10 MG PO (18:12)
[2023-06-19] MEDS: NOVOLOG FLEXPEN-LOW RESISTANCE SC (18:12)
[2023-06-19 23:00] VITALS: BP 124/67
[2023-06-20] MEDS: UNASYN IV ×4 (00:02→17:29)
[2023-06-20 00:17] LABS: Glucose - Point of Care 181 mg/dl (70-99)
[2023-06-20] MEDS: NOVOLOG FLEXPEN-LOW RESISTANCE SC (00:45)
[2023-06-20 05:37] LABS: Vancomycin Random 13.4 ug/ml
[2023-06-20 05:57] LABS: Blood Urea Nitrogen 17 mg/dl (9-20); Estimated Creatinine Clearance > 125 ml/min
[2023-06-20 07:00] VITALS: BP 131/68
--- NOTE | 2023-06-20 08:10 | W.PN.POD ---
Today's Communication
Today's Communication
Prox margin OR bone cultures are pending- so far negative.
Blood cx x 2- negative so far, ID following
Rec tight blood sugar control
WBAT in post op shoe, ok to DC home from my standpoint,follow up as outpatient
Assessment / Plan
-
DM2 with DPN/LOPS
Osteomyelitis w/bone abscess right great toe distal phalynx S/P part toe amp-POD#1
Cellulitis RLE-improved on IV abt per ID
Post op anemia 11.7 to 10.9 today- pt is asymptomatic (30 mL Blood loss in Surgery)
Subjective
Chief Complaint
right great toe OM
Subjective
Feels well, denies pain POD #1 S/P partial right hallux amp
Objective
Temp Pulse Resp BP Pulse Ox
98.2 F 64 18 132/70 93
06/20/23 15:00 06/20/23 15:00 06/20/23 15:00 06/20/23 15:00 06/20/23 15:00
06/17/23 05:03
06/20/23 05:09
Vital Signs and Lab results were reviewed.
Inspection: Cellulitis (improved to RLE)
Review of Systems
Review of Systems
Review of Systems: No Fever, No Chills, No Headache and No Diarrhea
Physical Exam
Physical Exam
General: No Apparent Distress
Skin: Warm, Dry and Other (surgical dressing C/D/I)
Neuro: AO x 3, Protective Sensation Diminished and Drop Foot, Left
Dorsalis Pedis: Intact
Posterior Tibialis: Intact
[2023-06-20 08:13] LABS: Glucose - Point of Care 191 mg/dl (70-99)
[2023-06-20] MEDS: ROXICODONE 15 MG PO ×4 (08:22→21:28)
[2023-06-20] MEDS: NOVOLOG FLEXPEN-LOW RESISTANCE 1 UNITS SC ×3 (08:23→17:44)
[2023-06-20] MEDS: ASPIR LOW (ENTERIC COATED) 81 MG PO (08:25)
--- NOTE | 2023-06-20 08:59 | W.PN.HOSP.TC ---
Today's Communication/Plan
-
Await finalization of blood cultures and delineation of antibiotics based on ID
Continues on Unasyn and Vanco
Stressed importance of vigilance on blood sugar management
Assessment / Plan
Assessment / Plan
57-year-old male past medical history as above who is presenting with right great toe swelling and right leg erythema.� Patient states he stubbed his right great toe multiple times.� There was loosening of right great toe nail.� Also states that his
toe was quite sensitive due to pain and his son's dog bumped into it.� Woke up this morning with severe right foot swelling and also noted of right leg erythema.� Denies any numbing or tingling or pain in right leg and great toe.� Denies any fevers
or chills.� Denies any nausea vomiting or diarrhea or abdominal pain or chest pain.� States he was worried about severe swelling of his right foot and great toe and thus decided come to the ER.� Has history of right foot second toe partial
amputation last year.
X-ray of the right great toe 3 views:
There is a comminuted fracture involving the distal aspect of the distal phalanx of the right great toe.
There are also is a fracture line extending through the lateral proximal articular margin of the distal phalanx of the right great toe.
Within the fracture fragments of the distal aspect of the distal phalanx, there is suggestion of some bony substance loss, and findings raise concern for osteomyelitis
Continued radiographic follow-up may be helpful to assess for any progression of bony destruction.
There has been interval resection of the right second toe at the level of the mid portion of the middle phalanx.
Mild to moderate degenerative change of the first metatarsophalangeal joint.
MRI noted evidence of osteomyelitis of the distal phalanx of the right great toe along with some plantar abscess fluid /no involvement with osteo of the proximal phalanx
Musculoskeletal: No Clubbing, No Cyanosis and Other (R foot swelling including great toe. R leg erythematous rash )
Skin: No Rash
Neuro: Awake, Alert, Oriented, AO x 3 and Nonfocal/grossly intact
#Right leg cellulitis/osteomyelitis of the distal right great toe/surrounding abscess/now status post right hallux amputation/I&D of the abscess
-Positive blood cultures x 2 on 06/15/follow-up blood culture on the fifth no growth to date
X-ray highly suspicious for osteomyelitis at the tip/with comminuted fracture of distal phalanx right great toe
-Good peripheral vascular pulses at posterior tibialis and anterior tib/recent RIMA was normal
Continue with broad-spectrum antibiotics Unasyn for now/MRSA screen was negative but will continue vancomycin till blood culture resulted
-Initial wound culture grew Staph epidermidis diphtheroids and gram-negative bacilli
Infectious disease following
For I&D by podiatry June 18/status post hallux amputation right with I&D//await bone margins that looked healthy
Pain control
#Primary hypertension
Hold meds and restart based on Cr in am
# Elevated creatinine likely CKD
Unclear baseline
Outpatient records
Hold HCTZ for now
Gentle IVF
#Hyperlipidemia
continue statin
#Diabetes mellitus
Hold metformin
iss
Accu-Cheks and check A1c equals 8.0
-Stressed importance of improved glycemic management once outpatient for proper healing and avoidance of recurrent
#Chronic opioid dependent daily basis
Continue oxycodone
PDMP checked and verified
Bowel regimen added
DVT ppx-lovenox
Anticipated Discharge: 24 - 48 hours
Subjective/Interval History
-
Date of Service: June 20, 2023
Not much pain referred restful night. Aware of findings at time of surgery and reviewed
Objective Data
-
Labs:
Laboratory Results
06/20/23
05:09
BUN 17
Creatinine 1.1
Vital Signs:
Vital Signs
Temp Pulse Resp BP Pulse Ox
98.7 F 68 18 131/68 92
06/20/23 07:00 06/20/23 07:00 06/20/23 07:00 06/20/23 07:00 06/20/23 07:00
I&O
06/19/23 06/20/23 06/21/23
06:59 06:59 06:59
Intake Total 480 / 960 700 / 700
Balance 480 / 960 700 / 700
Review of Systems
-
History Source: Patient
Constitutional: Reports No Symptoms
Respiratory: Reports No Symptoms
Cardiac: Reports No Symptoms
Physical Exam
-
General: Well Developed
HEENT: Normocephalic
Respiratory: Clear to Auscultation
Cardiac: Regular Rhythm
GI: Soft
Musculoskeletal: Edema, Right Lower Extrem (Foot dressed in Matthew wrap)
Skin: Warm
Psych: Calm
Data Reviewed
-
Total Time Spent with Patient (in minutes): 45
Labs: Labs Reviewed by me
--- NOTE | 2023-06-20 09:08 | PHA.VAN.FU ---
Vancomycin Assessment / Plan
- Assessment
Renal Function: SCR Decreasing
WBC's are: WNL
In the past 24 hrs, patient has been: Afebrile
Concomitant Antimicrobials: Ampicillin/Sulbactam
- Assessment - Therapeutic Drug Monitoring
Random Level: 13.4
- Dosing Plan
Dosing by Level: Re-dose today (1000mg in am, followed by 500mg PM)
Since there was a jump in level, reduced bid dosing but still maintained it to see how patient is doing on regimen.
- Monitoring Plan
Random Level: 06/21/23 @0600
- Follow Up
Pharmacy will continue to follow.
Vancomycin Follow UP
- -
Patient Age: 57
Patient Sex: Male
Vancomycin Day #: 5
Indication: Skin And Soft Tissue
Requesting Provider: Dr. Ayala / Robyn
Pertinent Antimicrobial Allergies:
NKDA
Height / Weight:
Height 6 ft 8 in
Actual Weight 161.1 kg
Pertinent Past Medical History: BMI ~39, DM
- Vital Signs / Lab Results
Temp Pulse Resp BP Pulse Ox
98.7 F 68 18 131/68 92
06/20/23 07:00 06/20/23 07:00 06/20/23 07:00 06/20/23 07:00 06/20/23 07:00
Lab Results - Chemistry
06/18/23 06/20/23
05:06 05:09
BUN 21 H 17
Creatinine 1.3 1.1
Estimated Creat Clear 107 > 125
Microbiology Results
06/16/23 16:01 Blood Culture - Preliminary
Blood/Venous Positive culture in progress
Gram Stain - Preliminary
06/16/23 16:01 Blood Culture - Preliminary
Blood/Venous Positive culture in progress
Gram Stain - Preliminary
06/17/23 13:42 Wound Culture - Preliminary
Foot - Right Staphylococcus epidermidis
Diptheroids
Gram negative bacilli
Gram Stain - Preliminary
06/19/23 16:43 Gram Stain - Preliminary
Toe
06/18/23 12:37 Blood Culture - Preliminary
Blood/Venous No Growth in 24 hours- Final report to follow
06/18/23 11:42 Blood Culture - Preliminary
Blood/Venous No Growth in 24 hours- Final report to follow
06/16/23 22:31 MRSA Screen - Final
Nose No Methicillin Resistant Staphylococcus aureus isolated.
Therapeutic Drug Monitoring
Random Vancomycin 13.4 ug/ml 06/20/23 05:09
[2023-06-20] MEDS: VANCOCIN 200 IV (11:15)
[2023-06-20 11:56] LABS: Glucose - Point of Care 171 mg/dl (70-99)
[2023-06-20] MEDS: THERAGRAN 1 TABLET PO (12:08)
[2023-06-20] MEDS: VITAMIN D3 (cholecalciferol) 25 MCG PO (12:08)
[2023-06-20] MEDS: VITAMIN C 500 MG PO (12:08)
[2023-06-20 15:00] VITALS: BP 132/70
--- NOTE | 2023-06-20 15:26 | W.PN.ID1 ---
Date of Service
Date of Service: June 20, 2023
Today's Communication
- follow up OR culture and pathology
- continue vancomycin, unasyn
Assessment / Plan
Diabetic Foot Infection
Probable Osteomyelitis of the Right Great Toe
H/o partial amputation of the R second toe
DM2 uncontrolled
Class II obesity
- repeat blood cultures x2 no growth to date
- follow up OR culture and pathology
- s/p partial toe amp and I&D of plantar abscess 06/18
- continue vancomycin, unasyn
- podiatry is consulted
- follow clinically
Chief Complaint
-: Other (osteomyelitis, cellulitis )
Subjective / Review of Systems
afebrile
bp stable
cr stable
repeat blood cultures no growth to date
OR culture no growth to date
Vital Signs / Physical Exam
Vital Signs
Vital Signs
Temp Pulse Resp BP Pulse Ox
98.7 F 68 18 131/68 92
06/20/23 07:00 06/20/23 07:00 06/20/23 07:00 06/20/23 07:00 06/20/23 08:15
Physical Exam
Constitutional: No Acute Distress
Cardiovascular: Regular Rate and S1/S2; Negative Murmur or Rub
Pulmonary: Clear and Symmetric; Negative Wheezes or Rales
Gastrointestinal: Soft, Non Tender, Non Distended and Normal Bowel Sounds
Skin: Warm and Dry; Negative Rash or Jaundice
Objective Data
Lab Data
Lab Results
06/17/23 05:03
06/20/23 05:09
Estimated Creat Clear > 125 ml/min 06/20/23 05:09
Lactic Acid Cancelled 06/16/23 19:45
Most recent labs reviewed.
Micro Results:
06/17/23 13:42 Wound Culture - Preliminary
Foot - Right Staphylococcus epidermidis
Diptheroids
Gram negative bacilli
Gram Stain - Preliminary
06/16/23 16:01 Blood Culture - Preliminary
Blood/Venous Eubacterium aerofaciens
Gram Stain - Preliminary
06/16/23 16:01 Blood Culture - Preliminary
Blood/Venous Peptostrep. asaccharolyticus
Gram Stain - Preliminary
06/18/23 12:37 Blood Culture - Preliminary
Blood/Venous No Growth in 48 hours- Final report to follow
06/18/23 11:42 Blood Culture - Preliminary
Blood/Venous No Growth in 48 hours- Final report to follow
06/19/23 16:43 Tissue Culture - Preliminary
Toe No Growth After 18-24 Hours
Gram Stain - Preliminary
06/16/23 22:31 MRSA Screen - Final
Nose No Methicillin Resistant Staphylococcus aureus isolated.
[2023-06-20 17:02] LABS: Glucose - Point of Care 150 mg/dl (70-99)
[2023-06-20] MEDS: LIPITOR 10 MG PO (17:29)
[2023-06-20] MEDS: VANCOCIN HCL 500 MG 100 IV (20:11)
[2023-06-20 21:31] LABS: Glucose - Point of Care 150 mg/dl (70-99)
[2023-06-20 23:00] VITALS: BP 133/70
[2023-06-21] MEDS: UNASYN IV ×3 (00:26→11:49)
[2023-06-21 06:00] LABS: Vancomycin Random 11.4 ug/ml
[2023-06-21 06:06] LABS: Hematocrit 30.8 % (39.0-52.0); Hemoglobin 10.6 g/dL (13.0-18.0); Mean Corp Hgb Conc. 34.4 g/dL (33.0-37.0); Mean Corpuscular Hgb 31.6 pg (27.0-31.0); Mean Corpuscular Volume 91.9 fL (80.0-94.0); Mean Platelet Volume 8.8 fL (7.4-10.4); Platelet Count 195 10^3/uL (130-400); Red Blood Cell Count 3.35 10^6/uL (4.70-6.10); Red Cell Dist. Width 12.5 % (11.5-14.5)
[2023-06-21 06:38] LABS: Blood Urea Nitrogen 14 mg/dl (9-20); Carbon Dioxide 28 mmol/L (22-30); Chloride 102 mmol/L (98-107); Estimated Creatinine Clearance > 125 ml/min; Glucose 148 mg/dl (70-99); Potassium 3.9 mmol/L (3.5-5.1); Sodium 139 mmol/L (135-145); eGFR > 60.00
[2023-06-21 07:00] VITALS: BP 140/83
[2023-06-21] MEDS: ROXICODONE 15 MG PO ×2 (07:53→12:00)
[2023-06-21] MEDS: ASPIR LOW (ENTERIC COATED) 81 MG PO (07:53)
[2023-06-21 08:32] LABS: Glucose - Point of Care 178 mg/dl (70-99)
[2023-06-21] MEDS: NOVOLOG FLEXPEN-LOW RESISTANCE 1 UNITS SC (08:47)
--- NOTE | 2023-06-21 09:18 | W.PN.HOSP.TC ---
Today's Communication/Plan
-
Will await final disposition for antibiotic course by ID hopefully today
Stable via podiatry for discharge with weightbearing as tolerated with boot and will have follow-up
Again discussed necessity to have tight blood sugar management continue metformin as prior on discharge may want to add Januvia but will need to follow-up with PCP
Assessment / Plan
Assessment / Plan
57-year-old male past medical history as above who is presenting with right great toe swelling and right leg erythema.� Patient states he stubbed his right great toe multiple times.� There was loosening of right great toe nail.� Also states that his
toe was quite sensitive due to pain and his son's dog bumped into it.� Woke up this morning with severe right foot swelling and also noted of right leg erythema.� Denies any numbing or tingling or pain in right leg and great toe.� Denies any fevers
or chills.� Denies any nausea vomiting or diarrhea or abdominal pain or chest pain.� States he was worried about severe swelling of his right foot and great toe and thus decided come to the ER.� Has history of right foot second toe partial
amputation last year.
X-ray of the right great toe 3 views:
There is a comminuted fracture involving the distal aspect of the distal phalanx of the right great toe.
There are also is a fracture line extending through the lateral proximal articular margin of the distal phalanx of the right great toe.
Within the fracture fragments of the distal aspect of the distal phalanx, there is suggestion of some bony substance loss, and findings raise concern for osteomyelitis
Continued radiographic follow-up may be helpful to assess for any progression of bony destruction.
There has been interval resection of the right second toe at the level of the mid portion of the middle phalanx.
Mild to moderate degenerative change of the first metatarsophalangeal joint.
MRI noted evidence of osteomyelitis of the distal phalanx of the right great toe along with some plantar abscess fluid /no involvement with osteo of the proximal phalanx
Musculoskeletal: No Clubbing, No Cyanosis and Other (R foot swelling including great toe. R leg erythematous rash )
Skin: No Rash
Neuro: Awake, Alert, Oriented, AO x 3 and Nonfocal/grossly intact
#Right leg cellulitis/osteomyelitis of the distal right great toe/surrounding abscess/now status post right hallux amputation/I&D of the abscess
-Positive blood cultures x 2 on 06/15/follow-up blood culture on the fifth no growth to date
X-ray highly suspicious for osteomyelitis at the tip/with comminuted fracture of distal phalanx right great toe
-Good peripheral vascular pulses at posterior tibialis and anterior tib/recent RIMA was normal
Continue with broad-spectrum antibiotics Unasyn for now/MRSA screen was negative but will continue vancomycin till blood culture resulted
-Initial wound culture grew Staph epidermidis diphtheroids and gram-negative bacilli
Infectious disease following
For I&D by podiatry June 18/status post hallux amputation right with I&D//await bone margins that looked healthy
Pain control
#Primary hypertension
Hold meds and restart based on Cr in am
# Elevated creatinine likely CKD
Unclear baseline
Outpatient records
Hold HCTZ for now
Gentle IVF
#Hyperlipidemia
continue statin
#Diabetes mellitus
Hold metformin
iss
Accu-Cheks and check A1c equals 8.0
-Stressed importance of improved glycemic management once outpatient for proper healing and avoidance of recurrent
#Chronic opioid dependent daily basis
Continue oxycodone
PDMP checked and verified
Bowel regimen added
DVT ppx-lovenox
Anticipated Discharge: Within 24 hours
Subjective/Interval History
-
Date of Service: June 21, 2023
Doing well did okay with weightbearing as tolerated with boot
Objective Data
-
Labs:
Laboratory Results
06/21/23
05:10
WBC 5.0
Hgb 10.6 L
Hct 30.8 L
Plt Count 195
Sodium 139
Potassium 3.9
Chloride 102
Carbon Dioxide 28
BUN 14
Creatinine 1.1
Glucose 148 H
Calcium 9.0
Vital Signs:
Vital Signs
Temp Pulse Resp BP Pulse Ox
97.6 F 69 16 140/83 93
06/21/23 07:00 06/21/23 07:00 06/21/23 07:00 06/21/23 07:00 06/21/23 07:00
I&O
06/20/23 06/21/23 06/22/23
06:59 06:59 06:59
Intake Total 700 / 700 720 / 720
Balance 700 / 700 720 / 720
Review of Systems
-
All other systems: Not reviewed unless documented
Physical Exam
-
General: Well Developed
Respiratory: Clear to Auscultation
Cardiac: Regular Rhythm
GI: Soft
Musculoskeletal: Edema, Right Lower Extrem (Right foot dressed with Matthew wrap)
Skin: Warm
Neuro: Awake, Alert and Oriented
Data Reviewed
-
Total Time Spent with Patient (in minutes): 45
Labs: Labs Reviewed by me (White count 5.0 hemoglobin 10.6/chemistries stable blood sugar 148)
--- NOTE | 2023-06-21 10:44 | W.PN.ID1 ---
Date of Service
Date of Service: June 21, 2023
Today's Communication
- OK to discharge with augmentin 875/125 mg PO BID x14 days
- follow up in ID clinic 1-2 weeks
Assessment / Plan
Diabetic Foot Infection
Probable Osteomyelitis of the Right Great Toe
H/o partial amputation of the R second toe
DM2 uncontrolled
Class II obesity
- repeat blood cultures x2 no growth to date
- OR culture no growth to date
- OK to discharge with augmentin 875/125 mg PO BID x14 days
- follow up in ID clinic 1-2 weeks
Chief Complaint
-: Other (osteomyelitis, cellulitis )
Subjective / Review of Systems
afebrile
bp stable
without leukocytosis
cr stable
tolerating current therapies
no new complaints
Vital Signs / Physical Exam
Vital Signs
Vital Signs
Temp Pulse Resp BP Pulse Ox
97.6 F 69 16 140/83 93
06/21/23 07:00 06/21/23 07:00 06/21/23 07:00 06/21/23 07:00 06/21/23 07:30
Physical Exam
Constitutional: No Acute Distress, Chronically Ill and Obese
Cardiovascular: Regular Rate and S1/S2; Negative Murmur or Rub
Pulmonary: Clear and Symmetric; Negative Wheezes or Rales
Gastrointestinal: Soft, Non Tender, Non Distended and Normal Bowel Sounds
Extremities: Other (dressing clean, dry, intact)
Skin: Warm and Dry; Negative Rash or Jaundice
Objective Data
Lab Data
Lab Results
06/21/23 05:10
06/21/23 05:10
Estimated Creat Clear > 125 ml/min 06/21/23 05:10
Lactic Acid Cancelled 06/16/23 19:45
Most recent labs reviewed.
Micro Results:
06/17/23 13:42 Wound Culture - Preliminary
Foot - Right Staphylococcus epidermidis
Diptheroids
Gram negative bacilli
Gram Stain - Preliminary
06/16/23 16:01 Blood Culture - Preliminary
Blood/Venous Eubacterium aerofaciens
Gram Stain - Preliminary
06/16/23 16:01 Blood Culture - Preliminary
Blood/Venous Peptostrep. asaccharolyticus
Gram Stain - Preliminary
06/18/23 12:37 Blood Culture - Preliminary
Blood/Venous No Growth in 48 hours- Final report to follow
06/18/23 11:42 Blood Culture - Preliminary
Blood/Venous No Growth in 48 hours- Final report to follow
06/19/23 16:43 Tissue Culture - Preliminary
Toe No Growth After 18-24 Hours
Gram Stain - Preliminary
06/16/23 22:31 MRSA Screen - Final
Nose No Methicillin Resistant Staphylococcus aureus isolated.
Care Review
Plan reviewed with: Physician (Dr Durham)
--- NOTE | 2023-06-21 11:22 | W.DS.TRANS ---
DC Summary - Inspector Exhaust Emissions
-
Discharge Instructions:
Discharge Diagnosis/Procedures Right great toe distal phalanx osteomyelitis/
status post hallux amputation
Type 2 diabetes mellitus
Hypertension
Diabetic foot infection
Diet Diabetic, Carb Controlled
Activity As tolerated
Additional Activity As instructed by podiatry with weightbearing as
tolerated with boot right foot
Instructions:
Stand-Alone Forms:
Changes to Home Medications: Yes
Discharge Medications:
DC Medications w/original date entered in [employer] [facility]
ascorbic acid (vitamin C) 500 mg tablet (Vitamin C) 500 mg PO NOON Supplement 06/16/23
aspirin 81 mg tablet,delayed release 81 mg PO DAILY Blood Clot Prevention/Tx 06/16/23
atorvastatin 10 mg tablet (Lipitor) 10 mg PO QPM High Cholesterol 06/16/23
cholecalciferol (vitamin D3) 25 mcg (1,000 unit) tablet (Vitamin D3) 25 mcg PO NOON Supplement 06/16/23
cyclobenzaprine 10 mg tablet 10 mg PO TID PRN spasms 06/16/23
losartan 100 mg-hydrochlorothiazide 25 mg tablet 1 tab PO DAILY Blood Pressure 06/16/23
metformin 1,000 mg tablet 1,000 mg PO BID@0800,1700 Diabetes 06/16/23
oxycodone 15 mg tablet 15 mg PO QID Pain 06/16/23
therapeutic multivitamin 1 tab PO NOON Supplement 06/16/23
vitamin A-vitamin C-vit E-min tablet 1 tab PO DAILY Supplement 06/16/23
amoxicillin 875 mg-potassium clavulanate 125 mg tablet 1 tab PO BID Infection #30 tabs 06/21/23
Home Medication Changes
amoxicillin 875 mg-potassium clavulanate 125 mg tablet 1 tab PO BID Infection #30 tabs 06/21/23
Pending Results: No
Total time spent discharging patient (in min): 38
[2023-06-21] MEDS: THERAGRAN 1 TABLET PO (11:50)
[2023-06-21] MEDS: VITAMIN C 500 MG PO (11:50)
[2023-06-21] MEDS: VITAMIN D3 (cholecalciferol) 25 MCG PO (11:50)
[2023-06-21] MEDS: NOVOLOG FLEXPEN-LOW RESISTANCE 2 UNITS SC (11:51)
[2023-06-21 11:56] LABS: Glucose - Point of Care 201 mg/dl (70-99)
--- NOTE | 2023-06-21 12:04 | CM ---
entered order for discharge.
Post op amputation right toe
As per care port pt accepted by [facility] at [facility]
Pt aid he had a ride home.
Pt said he agrees with [facility].
PLAN Home with Shaun BUCKLEY fax [phone]
--- NOTE | 2023-06-21 12:17 | W.DCSUMMARY ---
Discharge Summary
Discharge Data
Date of Admission: 06/16/23
Date of Discharge: 06/21/23
-
Pending Results: No
Hospital Course
57-year-old male past medical history as above who is presenting with right great toe swelling and right leg erythema.� Patient states he stubbed his right great toe multiple times.� There was loosening of right great toe nail.� Also states that his
toe was quite sensitive due to pain and his son's dog bumped into it.� Woke up this morning with severe right foot swelling and also noted of right leg erythema.� Denies any numbing or tingling or pain in right leg and great toe.� Denies any fevers
or chills.� Denies any nausea vomiting or diarrhea or abdominal pain or chest pain.� States he was worried about severe swelling of his right foot and great toe and thus decided come to the ER.� Has history of right foot second toe partial
amputation last year.
Patient was admitted placed on wide spectrum antibiotic coverage to include Zosyn and vancomycin with consultations placed to the podiatry service and the infectious disease service for
ID narrowed antibiotic to Unasyn and vancomycin while awaiting finalization of culture results both from the wound and blood cultures/with initial blood cultures growing mixed eusebio
Subsequent blood cultures proved negative for growth
Patient underwent an MRI of the great toe noting pathologic fracture of the distal phalanx of the great toe with appearing intact proximal phalanx but with a plantar abscess fluid collection below.
He was deemed compatible for a hallux amputation which was undertaken on 19 June 2023 without complication finding intact status of the proximal bone with resection of the distal bone and drainage of the plantar abscess
During his course of therapy he has remained hemodynamically stable without febrile course never manifesting any leukocytosis/
He was deemed paramount that the patient pursue tighter control of his diabetes mellitus going forward he has received wound care instructions from podiatry with weightbearing as tolerated with the usage of boot to his right foot
Infectious disease instructed the patient to complete a course of Augmentin at 875 mg twice a day for the next 2 weeks and have her follow-up with the clinic in a long follow-up with Dr. Cote the podiatry service.
Discharge diagnosis will be osteomyelitis with bone abscess of the right great toe and distal phalanx status post partial toe amputation
Cellulitis right lower extremity
Type 2 diabetes mellitus with recommendation for tighter blood sugar management and control resumption of metformin at discharge
Discharge Plan
-
Patient Disposition: Home (Routine Discharge)
Discharge Diagnosis/Procedures: Right great toe distal phalanx osteomyelitis/status post hallux amputation
Type 2 diabetes mellitus
Hypertension
Diabetic foot infection
Diet: Diabetic, Carb Controlled
Activity: As tolerated
Additional Activity: As instructed by podiatry with weightbearing as tolerated with boot right foot
Referrals:
Douglas Peralta DO [Family Provider] -
Yelitza Harrington MD [Active] - (Follow-up in 1 to 2 weeks call office/ Dr Carlson)
Additional Discharge Medication Instructions: Follow-up with podiatry call Dr. Cote
Prescriptions:
New
amoxicillin-pot clavulanate 875-125 mg tablet
1 tab PO BID Qty: 30 0RF
Continued
cyclobenzaprine 10 mg Tablet
10 mg PO TID PRN (Reason: spasms)
atorvastatin [Lipitor] 10 mg Tablet
10 mg PO QPM
therapeutic multivitamin Tablet
1 tab PO NOON
aspirin 81 mg Tablet,Delayed Release (Dr/Ec)
81 mg PO DAILY
oxycodone 15 mg Tablet
15 mg PO QID
losartan-hydrochlorothiazide 100-25 mg Tablet
1 tab PO DAILY
ascorbic acid (vitamin C) [Vitamin C] 500 mg Tablet
500 mg PO NOON
metformin 1,000 mg Tablet
1,000 mg PO BID@0800,1700
vitamin A-vitamin C-vit E-min Tablet
1 tab PO DAILY
cholecalciferol (vitamin D3) [Vitamin D3] 25 mcg (1,000 unit) Tablet
25 mcg PO NOON
Discharge Orders:
Discharge Patient (As Directed); Ordered 06/21/23
Ordered By: Arden Durham
== END 2023-06-21 14:07 | disposition home health service (06) | DRG 504 ==
LOC: 3 WEST ACU 17:54
PROVIDERS: Internal Medicine Infectious Disease; ADMITTING PHYSICIAN Hospitalist; ATTENDING PHYSICIAN Internal Medicine; CONSULT PHYSICIAN Podiatrist Foot & Ankle Surgery; EMERGENCY PHYSICIAN Emergency Medicine; FAMILY PHYSICIAN Family Medicine; OTHER PHYSICIAN Student in an Organized Health Care Education/Training Program
PROC: 0Y6P0Z1 Detachment at Right 1st Toe, High, Open Approach (ICD-10-PCS; 2023-06-19)
DX: M86.171 Other acute osteomyelitis, right ankle and foot (principal); E11.52 Type 2 diabetes mellitus with diabetic peripheral angiopathy with gangrene; L03.115 Cellulitis of right lower limb; L02.611 Cutaneous abscess of right foot; M84.477A Pathological fracture, right toe(s), initial encounter for fracture; E11.621 Type 2 diabetes mellitus with foot ulcer; E11.628 Type 2 diabetes mellitus with other skin complications; L03.031 Cellulitis of right toe; E11.69 Type 2 diabetes mellitus with other specified complication; I10 Essential (primary) hypertension; E78.5 Hyperlipidemia, unspecified; F17.200 Nicotine dependence, unspecified, uncomplicated; E66.9 Obesity, unspecified; Z89.419 Acquired absence of unspecified great toe; Z68.39 Body mass index [BMI] 39.0-39.9, adult; N18.9 Chronic kidney disease, unspecified
CPT/HCPCS: 88304; 88311; 73620; 73660; 73720; 80048; 80202; 82565; 82962; 83036; 83605; 84520; 85025; 85027; 86803; 87040; 87070; 87077; 87147; 87149; 87176; 87186; 87205; 96365; 96375; 99285; A9575

== ENCOUNTER → 2024-08-07 12:00 | Outpatient (REF) | payer OTHER, SELFPAY | LOC: HWRAD 12:00 | PROVIDERS: ATTENDING PHYSICIAN Podiatrist Foot & Ankle Surgery; FAMILY PHYSICIAN Family Medicine | DX: L97.522 Non-pressure chronic ulcer of other part of left foot with fat layer exposed (principal) | CPT/HCPCS: 73630 ==

== ENCOUNTER → 2024-09-24 09:30 | Outpatient (REF) | payer OTHER, SELFPAY | LOC: HWRAD 09:30 | PROVIDERS: ATTENDING PHYSICIAN Podiatrist Foot & Ankle Surgery; FAMILY PHYSICIAN Family Medicine | DX: Z01.811 Encounter for preprocedural respiratory examination (principal) | CPT/HCPCS: 71046 ==

== ENCOUNTER → 2024-09-30 01:00 | Outpatient (REF) | payer OTHER, SELFPAY | LOC: CLAB 01:00 | PROVIDERS: ATTENDING PHYSICIAN Podiatrist Foot & Ankle Surgery | DX: L97.512 Non-pressure chronic ulcer of other part of right foot with fat layer exposed (principal) | CPT/HCPCS: 88304; 88311 ==

== ENCOUNTER → 2025-03-29 07:43 | Outpatient (REF) | payer OTHER, SELFPAY | LOC: RAD 07:43 | PROVIDERS: ATTENDING PHYSICIAN Family Medicine | DX: M25.512 Pain in left shoulder (principal) | CPT/HCPCS: 73030 ==